=== PATIENT | male | born 1945 | race African-American/Black ===

== ENCOUNTER 2023-05-24 15:04 | Inpatient (IN) | payer MEDICARE, BC ==
[~2023-05-24] VITALS: Ht 188 cm; Wt 74.8 kg
[2023-05-24 15:57] LABS: CLARITY URINE CLEAR (CLEAR); COLOR URINE YELLOW (YELLOW); GLUCOSE URINE NEGATIVE (NEGATIVE); KETONES URINE NEGATIVE (NEGATIVE); LEUKOCYTE ESTERASE URINE NEGATIVE (NEGATIVE); NITRITE URINE NEGATIVE (NEGATIVE); OCCULT BLOOD URINE 3+ (NEGATIVE); PROTEIN URINE 1+ (NEGATIVE); SPECIFIC GRAVITY URINE 1.018 (1.005-1.030); UROBILINOGEN URINE 0.2 E.U./dL (0.2-1.0)
[2023-05-24 16:33] LABS: BASOPHILS % 0.6 % (0.0-2.0); EOSINOPHILS % 0.2 % (0.0-5.0); HEMATOCRIT. 36.1 % (42.0-52.0); HEMOGLOBIN. 11.7 g/dL (14.0-18.0); MEAN CORPUSCULAR HEMOGLOBIN 28.3 pg (28.0-32.0); MEAN CORPUSCULAR HGB CONC 32.3 g/dL (31.0-37.0); MEAN CORPUSCULAR VOLUME 87.6 fL (80.0-94.0); MEAN PLATELET VOLUME 7.1 fl (7.4-10.4); MONOCYTES % 7.4 % (2.0-8.0); NEUTROPHILS % 80.8 % (40.0-76.0); PLATELET 230 x1000/uL (130-400); RED BLOOD CELL COUNT 4.12 mill/uL (4.7-6.1); RED CELL DISTRIBUTION WIDTH 16.1 % (11.6-14.6); WHITE BLOOD COUNT 10.5 x1000/uL (4.5-11.0)
[2023-05-24 16:42] LABS: BACTERIA URINE FEW; RBC URINE TNTC /hpf (0-2); SQUAMOUS EPITHELIAL CELL URINE NONE SEEN /lpf (RARE/1+); WBC URINE 0-2 /hpf (0-2)
[2023-05-24 16:47] LABS: ALANINE AMINOTRANSFERASE < 7 IU/L (10-49); ALBUMIN 4.1 g/dL (3.2-4.8); ASPARTATE AMINOTRANSFERASE 18 IU/L (<34); BILIRUBIN TOTAL 0.4 mg/dL (0.1-1.0); CALCIUM 9.1 mg/dL (8.7-10.4); CARBON DIOXIDE 25 mEq/L (21-32); CHLORIDE 104 mEq/L (98-107); CREATININE 1.4 mg/dL (0.6-1.3); GLUCOSE 148 mg/dL (70-105); POTASSIUM 4.6 mEq/L (3.5-5.1); PROTEIN TOTAL 6.9 g/dL (6.0-8.3); SODIUM 135 mEq/L (136-145); UREA NITROGEN BLOOD 22 mg/dL (9-23)
[2023-05-24 16:48] LABS: TROPONIN I HIGH SENSITIVITY < 4 ng/L (3.0-53)
[2023-05-24] MEDS: SODIUM CHLORIDE 0.9% 1,000 ML IV ONE (17:28)
[2023-05-24] MEDS: KETOROLAC 30MG/ML VIAL IV STA (17:28)
[2023-05-24] MEDS: CEFTRIAXONE 1GM PREMIX 50 ML IV ONE (17:28)
[2023-05-24] MEDS: ACETAMINOPHEN 325MG TABLET PO STA (17:28)
[2023-05-24 22:00] VITALS: BP 129/79; PULSE 49; RESP 16; TEMP 97
[2023-05-24] MEDS ORDERED: FERR324T4 MT (22:40)
[2023-05-24] MEDS ORDERED: ASPI-1497 PO (22:40)
[2023-05-24] MEDS ORDERED: FINA5TAB11 MT (22:41)
[2023-05-24] MEDS ORDERED: LISI20TA31 PO (22:41)
[2023-05-24] MEDS ORDERED: SIMV10TA97 PO (22:42)
[2023-05-24] MEDS ORDERED: TRAZ-252 PO (22:42)
[2023-05-24 23:05] VITALS: BP 129/71; PULSE 50; RESP 17; TEMP 97
[2023-05-25] MEDS: SODIUM CHLORIDE 0.9% 1,000 ML IV SCH (00:15)
[2023-05-25] MEDS ORDERED: IPRATROPIUM/ALBUTEROL 0.5-3(2.5)MG/3ML NEB HHN PRN (00:15)
[2023-05-25] MEDS: TRAZODONE HCL 50MG TABLET PO SCH (00:38)
[2023-05-25] MEDS: ACETAMINOPHEN 325MG TABLET PO PRN (00:39)
[2023-05-25 01:12] LABS: CLARITY URINE CLEAR (CLEAR); COLOR URINE YELLOW (YELLOW); GLUCOSE URINE NEGATIVE (NEGATIVE); KETONES URINE NEGATIVE (NEGATIVE); LEUKOCYTE ESTERASE URINE NEGATIVE (NEGATIVE); NITRITE URINE NEGATIVE (NEGATIVE); OCCULT BLOOD URINE 3+ (NEGATIVE); PH URINE 5.5 (4.5-8.0); PROTEIN URINE NEGATIVE (NEGATIVE); SPECIFIC GRAVITY URINE 1.014 (1.005-1.030); UROBILINOGEN URINE 0.2 E.U./dL (0.2-1.0)
[2023-05-25 01:31] LABS: *AMPHETAMINES SCREEN URINE NEGATIVE (NEGATIVE); *BARBITURATES SCREEN URINE NEGATIVE (NEGATIVE); *BENZODIAZEPINES SCREEN URINE NEGATIVE (NEGATIVE); *COCAINE SCREEN URINE NEGATIVE (NEGATIVE); CANNABINOID URINE SCREEN NEGATIVE (NEGATIVE); ECSTASY MDMA SCREEN URINE NEGATIVE (NEGATIVE); METHADONE URINE SCREEN Neg (NEGATIVE); OPIATES URINE SCREEN NEGATIVE (NEGATIVE); PHENCYCLIDINE URINE SCREEN NEGATIVE (NEGATIVE)
[2023-05-25] MEDS ORDERED: DEXTROSE 50% WATER 50ML SYRINGE IV PRN (02:15)
[2023-05-25 02:22] LABS: SQUAMOUS EPITHELIAL CELL URINE FEW /lpf (RARE/1+)
[2023-05-25 02:23] LABS: WBC URINE 0-2 /hpf (0-2)
[2023-05-25 02:24] LABS: BACTERIA URINE NONE SEEN; RBC URINE 50-100 /hpf (0-2)
[2023-05-25 04:00] VITALS: BP 119/68; PULSE 66; RESP 18; TEMP 98.1
[2023-05-25 05:07] LABS: PHOSPHORUS 2.1 mg/dL (2.5-4.9)
[2023-05-25] MEDS: BLOOD SUGAR DIAGNOSTIC STRIP TEST SCH (06:30)
[2023-05-25 07:20] LABS: CREATINE KINASE 129 IU/L (46-171); CREATINE KINASE MB FRACTION < 0.5 ng/mL (0.5-3.6); TROPONIN I HIGH SENSITIVITY 5 ng/L (3.0-53)
[2023-05-25] MEDS: INSULIN LISPRO 100 UNITS/ML SUBCUT SCH (07:50)
[2023-05-25 08:00] VITALS: BP 121/72; PULSE 64; RESP 20; TEMP 98.8
[2023-05-25] MEDS: FINASTERIDE 5MG TABLET PO SCH (09:39)
[2023-05-25] MEDS: TAMSULOSIN HCL 0.4MG SR CAPSULE PO SCH (09:39)
[2023-05-25] MEDS: LISINOPRIL 20MG TABLET PO SCH (09:40)
[2023-05-25] MEDS: CEFTRIAXONE 1GM PREMIX 50 ML IV SCH (09:46)
[2023-05-25 12:00] VITALS: BP 120/72; PULSE 73; RESP 20; TEMP 97.8
[2023-05-25 12:53] LABS: SODIUM URINE RANDOM 113 mEq/L
[2023-05-25 13:14] LABS: OSMOLALITY URINE 452 mOsm/kg (500-850)
[2023-05-25] MEDS: POLYETHYLENE GLYCOL 3350 (17GM) 1 DOSE PACK PO NR (15:24)
[2023-05-25 16:00] VITALS: BP 115/69; PULSE 75; RESP 20; TEMP 98.4
[2023-05-25 18:23] LABS: CREATINE KINASE 118 IU/L (46-171); CREATINE KINASE MB FRACTION < 0.5 ng/mL (0.5-3.6)
[2023-05-25] MEDS: SODIUM PHOS,M-BASIC-D-BASIC 15 MM in DEXT 5% WATER 245 ML IV NR (18:58)
[2023-05-25 19:08] LABS: TROPONIN I HIGH SENSITIVITY < 4 ng/L (3.0-53)
[2023-05-25 20:00] VITALS: BP 129/74; PULSE 72; RESP 18; TEMP 98.1
[2023-05-25] MEDS: FAMOTIDINE 20MG TABLET PO SCH (21:09)
[2023-05-25] MEDS: ATORVASTATIN CALCIUM 10MG TABLET PO SCH (21:10)
[2023-05-26] VITALS: BP 116/78; PULSE 69; RESP 18; TEMP 97.7
[2023-05-26 04:00] VITALS: BP 127/71; PULSE 69; RESP 18; TEMP 97.5
[2023-05-26 06:35] LABS: BASOPHILS % 0.7 % (0.0-2.0); EOSINOPHILS % 1.8 % (0.0-5.0); HEMATOCRIT. 33.5 % (42.0-52.0); HEMOGLOBIN. 10.7 g/dL (14.0-18.0); LYMPHOCYTES % 34.8 % (20.0-50.0); MEAN CORPUSCULAR HEMOGLOBIN 28.5 pg (28.0-32.0); MEAN CORPUSCULAR HGB CONC 31.9 g/dL (31.0-37.0); MEAN CORPUSCULAR VOLUME 89.1 fL (80.0-94.0); MEAN PLATELET VOLUME 6.7 fl (7.4-10.4); MONOCYTES % 9.7 % (2.0-8.0); PLATELET 213 x1000/uL (130-400); RED BLOOD CELL COUNT 3.76 mill/uL (4.7-6.1); RED CELL DISTRIBUTION WIDTH 16.6 % (11.6-14.6); WHITE BLOOD COUNT 6.5 x1000/uL (4.5-11.0)
[2023-05-26 07:30] LABS: ALANINE AMINOTRANSFERASE 19 IU/L (10-49); ALBUMIN 3.5 g/dL (3.2-4.8); ASPARTATE AMINOTRANSFERASE 31 IU/L (<34); BILIRUBIN TOTAL 0.4 mg/dL (0.1-1.0); CALCIUM 8.6 mg/dL (8.7-10.4); CARBON DIOXIDE 24 mEq/L (21-32); CHLORIDE 108 mEq/L (98-107); CHOLESTEROL 126 mg/dL (<200); CREATININE 1.1 mg/dL (0.6-1.3); GLUCOSE 90 mg/dL (70-105); HDL CHOLESTEROL 51 mg/dL (>55); LDL CHOLESTEROL 64 mg/dL (5-100); POTASSIUM 4.2 mEq/L (3.5-5.1); PROTEIN TOTAL 5.9 g/dL (6.0-8.3); SODIUM 139 mEq/L (136-145); T4 FREE 0.94 ng/dL (0.89-1.76); THYROID STIMULATING HORMONE 1.42 uIU/mL (0.55-4.78); TRIGLYCERIDE 57 mg/dL (0-150); UREA NITROGEN BLOOD 16 mg/dL (9-23)
[2023-05-26 08:00] VITALS: BP 140/70; PULSE 67; RESP 19; TEMP 98.1
[2023-05-26] MEDS: SENNOSIDES/DOCUSATE SOD 8.6/50MG TABLET PO SCH (09:16)
[2023-05-26 12:00] VITALS: BP 124/76; PULSE 64; RESP 17; TEMP 97.8
[2023-05-26] MEDS ORDERED: TAMS-11 PO (12:02)
[2023-05-26] MEDS ORDERED: DOCU250C69 MT (12:26)
[2023-05-26 12:48] VITALS: BP 124/76; PULSE 64; TEMP 97.8; O2SAT 99
== END 2023-05-26 13:51 | disposition home or self-care (01) | DRG 699 ==
LOC: ER 15:04 → 6WST 20:43 → EDBEDREQ 20:46 → EDBEDREQTM 20:46
PROVIDERS: ADMIT Preventive Medicine Clinical Informatics; ATTEND Preventive Medicine Clinical Informatics
DX: N28.1 Cyst of kidney, acquired (principal); E87.1 Hypo-osmolality and hyponatremia; K56.7 Ileus, unspecified; I49.3 Ventricular premature depolarization; I10 Essential (primary) hypertension; E78.5 Hyperlipidemia, unspecified; N17.9 Acute kidney failure, unspecified; Z66 Do not resuscitate; N13.30 Unspecified hydronephrosis; E11.9 Type 2 diabetes mellitus without complications; D50.9 Iron deficiency anemia, unspecified; Z87.440 Personal history of urinary (tract) infections; Z79.82 Long term (current) use of aspirin; R31.9 Hematuria, unspecified
CPT/HCPCS: 36415; 71045; 74176; 76770; 80053; 80061; 80305; 81003; 82550; 82553; 82962; 83036; 83605; 83735; 83930; 83935; 84100; 84145; 84153; 84300; 84439; 84443; 84484; 85025; 93005; 99285; J0696; J1885; J3490; J7030; J7060